=== PATIENT | male | born 1935 | race Caucasian/White ===

== ENCOUNTER 2021-06-19 09:38 | Emergency (ER) | payer OTHER ==
[~2021-06-19 09:38] MED LIST: ASCORBIC ACID500 MG PO; ASPIRIN CHEWABL81 MG PO; ATIVAN1 MG PO; AUGMENTIN 875-1 EACH PO; CETIRIZINE HCL10 MG PO; DYAZIDE 37.5-21 EACH PO; FELODIPINE ER5 MG PO; FLOMAX 0.4 MG0.4 MG PO; LEVSIN-SL0.125 MG SL; MAGNESIUM500 MG PO; MEN'S ONE DAIL1 EACH PO; NEURONTIN300 MG PO; NYSTATIN SUSP1 ML/ML SSW; ONDANSETRON ODT4 MG PO; PRAVACHOL40 MG PO; PROTONIX 40MG T40 MG PO; PSYLLIUM HUSK PO; SYNTHROID100 MCG PO; TEGRETOL200 MG PO; TRULANCE3 MG PO; TYLENOL #31 EACH PO
[2021-06-19 10:10] LABS: BASOPHIL 0.7 % (0-2); EOSINOPHIL 3.1 % (0-7); HCT 45.8 % (42.0-52.0); HGB 15.5 g/dl (13.2-18.0); LYMPHOCYTE 27.2 % (15-48); MCHC 33.8 g/dL (32.0-36.0); MCV 91.6 fL (78.0-100.0); MONOCYTE 6.1 % (0-12); MPV 9.8 fL (6.0-9.5); NEUTROPHIL 62.8 % (41-80); NRBC 0; PLT 249 K/uL (150-400); RDW 12.3 % (11.5-14.0); WBC 7.1 K/uL (4.0-10.5)
[2021-06-19 10:31] LABS: ALBUMIN 4.1 g/dL (3.4-5.0); BILIRUBIN - TOTAL 0.9 mg/dL (0.2-1.0); BUN/CREAT RATIO (CALC) 12.2 RATIO; CREATININE 1.23 mg/dL (0.67-1.17); INR 1.05 (0.9-1.2); POTASSIUM 3.4 mmol/L (3.5-5.1); PROTHROMBIN TIME 13.1 SECONDS (11.8-13.4); TOTAL PROTEIN 7.1 g/dL (6.4-8.2)
[2021-06-19 10:32] LABS: PTT 31.6 SECONDS (24.4-34.7)
[2021-06-19 11:22] LABS: PRO-BNP 117 pg/mL (<450)
[2021-06-19 11:23] LABS: BILIRUBIN 1+ mg/dL (NEGATIVE); BLOOD NEGATIVE Ery/uL (NEGATIVE); CLARITY CLEAR (CLEAR); COLOR AMBER (YELLOW); GLUCOSE (U) NORMAL (NORMAL); LEUKOCYTES NEGATIVE Leu/uL (NEGATIVE); NITRITE NEGATIVE (NEGATIVE); PROTEIN NEGATIVE (NEGATIVE); pH 7.5 (5.0-9.0)
[2021-06-19 12:19] LABS: CORONAVIRUS 2019 SARS-COV-2 NEGATIVE (NEGATIVE); INFLUENZA A NAA NEGATIVE (NEGATIVE)
== END 2021-06-19 13:20 | disposition home or self-care (01) ==
LOC: FER 09:38
PROVIDERS: Emergency Medicine
DX: B34.9 Viral infection, unspecified (principal); R91.8 Other nonspecific abnormal finding of lung field; I10 Essential (primary) hypertension; Z20.822 Contact with and (suspected) exposure to COVID-19; Z88.2 Allergy status to sulfonamides; Z91.041 Radiographic dye allergy status
CPT/HCPCS: 36415; 71045; 71250; 80053; 81003; 83605; 83880; 84145; 84484; 85025; 85610; 85730; 87040; 93005; U0002